=== PATIENT | male | born 1955 | race Two or more races ===

== ENCOUNTER 2018-04-15 13:06 | Inpatient (IN) | payer SELFPAY ==
[~2018-04-15] VITALS: Ht 152.4 cm; Wt 81.2 kg
[~2018-04-15 13:06] MED LIST: ASPI-518 PO; ATOR20TA PO; LISI10TA5 PO; OMEP20TA2 PO
[2018-04-15] MEDS ORDERED: ACETAMINOPHEN 325MG TABLET PO STA (13:22)
[2018-04-15 14:03] LABS: CHLORIDE 103 mEq/L (98-107)
[2018-04-15 14:16] LABS: BASOPHILS % 0.9 % (0.0-2.0); HEMATOCRIT. 47.4 % (42.0-52.0); HEMOGLOBIN. 16.6 g/dL (14.0-18.0); LYMPHOCYTES % 15.7 % (20.0-50.0); MEAN CORPUSCULAR HEMOGLOBIN 35.6 pg (28.0-32.0); MEAN CORPUSCULAR VOLUME 101.9 fL (80.0-94.0); MEAN PLATELET VOLUME 8.7 fl (7.4-10.4); MONOCYTES % 11.3 % (2.0-8.0); NEUTROPHILS % 71.1 % (40.0-76.0); PLATELET 221 x1000/uL (130-400); RED BLOOD CELL COUNT 4.66 mill/uL (4.7-6.1); RED CELL DISTRIBUTION WIDTH 12.9 % (11.6-14.6)
[2018-04-15 15:26] LABS: CLARITY URINE CLEAR (CLEAR); COLOR URINE DARK YELLOW (YELLOW); KETONES URINE TRACE (NEGATIVE); LEUKOCYTE ESTERASE URINE NEGATIVE (NEGATIVE); NITRITE URINE NEGATIVE (NEGATIVE); OCCULT BLOOD URINE NEGATIVE (NEGATIVE); PH URINE 5.5 (4.5-8.0); PROTEIN URINE NEGATIVE (NEGATIVE); SPECIFIC GRAVITY URINE 1.023 (1.005-1.030)
[2018-04-15] MEDS ORDERED: MORPHINE SULFATE 4 MG/ML CPJ (NOT FOR IM USE) IV ONE (15:30)
[2018-04-15] MEDS ORDERED: ONDANSETRON HCL 4MG/2ML INJ IV ONE (15:30)
[2018-04-15] MEDS ORDERED: ASPIRIN 81MG TABLET PO ONE (18:00)
[2018-04-15] MEDS ORDERED: ACETAMINOPHEN 325MG TABLET PO PRN (18:00)
[2018-04-15] MEDS ORDERED: MORPHINE SULFATE 4 MG/ML CPJ (NOT FOR IM USE) IV PRN (21:15)
[2018-04-15 21:30] VITALS: BP 163/97
[2018-04-15 22:11] VITALS: BP 163/97
[2018-04-15] MEDS ORDERED: MEDICATION NOT ON FORMULARY EA (Omeprazole 20 MG) PO SCH (22:45)
[2018-04-15] MEDS ORDERED: MEDICATION NOT ON FORMULARY EA (Lisinopril 10 MG) PO SCH (22:45)
[2018-04-15] MEDS ORDERED: ONDANSETRON HCL 4MG/2ML INJ IV PRN (22:45)
[2018-04-15] MEDS ORDERED: DOCUSATE SODIUM SUGAR FREE 100MG/10ML UDC NG SCH (22:45)
[2018-04-16] VITALS: BP 181/98
[2018-04-16] MEDS: MORPHINE SULFATE 4 MG/ML CPJ (NOT FOR IM USE) IV PRN ×3 (00:03→21:21)
[2018-04-16] MEDS: LISINOPRIL 10MG TABLET PO SCH ×2 (00:04→09:34)
[2018-04-16] MEDS: ATORVASTATIN CALCIUM 20MG TABLET PO SCH ×2 (00:04→21:19)
[2018-04-16] MEDS: OMEPRAZOLE 20MG CAPSULE EXTENDED RELEASE PO SCH ×2 (00:04→09:33)
[2018-04-16] MEDS: DOCUSATE SODIUM 250MG CAPSULE PO SCH ×3 (00:05→16:44)
[2018-04-16 04:00] VITALS: BP 136/86
[2018-04-16 08:00] VITALS: BP 105/71
[2018-04-16] MEDS ORDERED: INFLUENZA VIRUS VACCINE(AFLURIA) 0.5ML SYR IM ONE (09:00)
[2018-04-16] MEDS: ENOXAPARIN 40MG/0.4ML SYR SUBCUT SCH (09:33)
[2018-04-16 13:51] VITALS: BP 99/70
[2018-04-16 16:00] VITALS: BP 99/71
[2018-04-16] MEDS: NICOTINE 7MG PATCH TD SCH (16:44)
[2018-04-16 20:00] VITALS: BP 102/66
[2018-04-16] MEDS: PANTOPRAZOLE SODIUM 40 MG/VIAL IV SCH (21:19)
[2018-04-17] VITALS (7 sets, daily range): BP systolic 91–142; BP diastolic 48–90
[2018-04-17] MEDS ORDERED: OMEPRAZOLE 20MG CAPSULE EXTENDED RELEASE PO SCH (07:40)
[2018-04-17 07:46] LABS: HEMATOCRIT 46.9 % (42.0-52.0); HEMOGLOBIN 16.4 g/dL (14.0-18.0); MEAN CORPUSCULAR HEMOGLOBIN 35.7 pg (28.0-32.0); MEAN CORPUSCULAR VOLUME 101.9 fL (80.0-94.0); PLATELET 196 x1000/uL (130-400); RED CELL DISTRIBUTION WIDTH 12.5 % (11.6-14.6)
[2018-04-17 07:59] LABS: CHLORIDE 105 mEq/L (98-107)
[2018-04-17] MEDS: LISINOPRIL 10MG TABLET PO SCH (09:00)
[2018-04-17] MEDS: NICOTINE 7MG PATCH TD SCH (09:14)
[2018-04-17] MEDS: PANTOPRAZOLE SODIUM 40 MG/VIAL IV SCH ×2 (09:14→20:26)
[2018-04-17] MEDS: DOCUSATE SODIUM 250MG CAPSULE PO SCH ×2 (09:14→16:12)
[2018-04-17] MEDS ORDERED: SODIUM CHLORIDE 0.9% 250 ML IV ONE (09:15)
[2018-04-17] MEDS ORDERED: SODIUM CHLORIDE 0.9% 1,000 ML IV SCH (09:15)
[2018-04-17] MEDS ORDERED: BISACODYL 10MG SUPP PR PRN (13:30)
[2018-04-17] MEDS ORDERED: BISACODYL 5MG TABLET PO PRN (13:30)
[2018-04-17] MEDS ORDERED: SORBITOL 70% SOLN 30ML PO PRN (13:30)
[2018-04-17] MEDS ORDERED: NA PHOS,M-B/NA PHOS,DI-BA ENEMA 118ML PR NR (19:00)
[2018-04-17] MEDS: ATORVASTATIN CALCIUM 20MG TABLET PO SCH (20:26)
[2018-04-18 04:07] VITALS: BP 128/73
[2018-04-18] MEDS: DOCUSATE SODIUM 250MG CAPSULE PO SCH (07:50)
[2018-04-18] MEDS: NICOTINE 7MG PATCH TD SCH (07:50)
[2018-04-18] MEDS: PANTOPRAZOLE SODIUM 40 MG/VIAL IV SCH (07:50)
[2018-04-18] MEDS: LISINOPRIL 10MG TABLET PO SCH (07:52)
[2018-04-18] MEDS: MORPHINE SULFATE 4 MG/ML CPJ (NOT FOR IM USE) IV PRN ×2 (07:52→13:07)
[2018-04-18] MEDS: ENOXAPARIN 40MG/0.4ML SYR SUBCUT SCH (07:53)
[2018-04-18 12:00] VITALS: BP 105/58
[2018-04-18 13:00] VITALS: BP 105/58
[2018-04-18 16:00] VITALS: BP 90/60
[2018-04-18 16:56] VITALS: BP 90/60
== END 2018-04-18 18:30 | disposition home or self-care (01) | DRG 241 ==
LOC: ER 13:06 → EDBEDREQ 17:44 → 7WST 17:57 → EDBEDREQ 17:58 → EDBEDREQTM 17:58 → ENRESERV 19:34
PROVIDERS: ADMIT Internal Medicine; ATTEND Internal Medicine
DX: K27.9 Peptic ulcer, site unspecified, unspecified as acute or chronic, without hemorrhage or perforation (principal); I95.9 Hypotension, unspecified; F17.210 Nicotine dependence, cigarettes, uncomplicated; E66.9 Obesity, unspecified; E78.5 Hyperlipidemia, unspecified; M47.9 Spondylosis, unspecified; I25.10 Atherosclerotic heart disease of native coronary artery without angina pectoris; K21.9 Gastro-esophageal reflux disease without esophagitis; K57.30 Diverticulosis of large intestine without perforation or abscess without bleeding; K59.00 Constipation, unspecified; I10 Essential (primary) hypertension; Z95.1 Presence of aortocoronary bypass graft; Z68.35 Body mass index [BMI] 35.0-35.9, adult; Z79.82 Long term (current) use of aspirin; Z79.899 Other long term (current) drug therapy; Z88.0 Allergy status to penicillin
CPT/HCPCS: 36415; 71045; 74018; 74176; 80048; 83036; 84484; 85027; 93005; 96374; 96375; 99285; C9113; J1650; J2270; J2405; J7030